=== PATIENT | male | born 1955 | race African-American/Black ===

== ENCOUNTER 2018-08-14 20:09 | Emergency (ER) | payer OTHER ==
[2018-08-14] MEDS ORDERED: Acetaminophen 500 MG TAB ONE (20:38)
--- NOTE | 2018-08-14 20:58 | CT ---
CT OF THE BRAIN WITHOUT CONTRAST: 08/14/18 The ventricles are normal in size with no shift. No intracranial bleeding or extra-axial hematoma was seen. There is no sign of mass, edema, or stroke. There is a small amount of soft tissue swelling over the left side of the forehead. The underlying sara ne appears normal in the skull. There is no air fluid level in the sphenoid sinus and the mastoid air cells are clear. Some mild mucosal thickening is seen in some of the ethmoid air cells bilaterally. IMPRESSION: No acute intracranial findings. POS: HOME
--- NOTE | 2018-08-14 20:59 | RAD ---
PORTABLE CHEST 08/14/18 An AP portable film at 2019 shows a normal sized heart and clear lungs. There is no mediastinal widen ing or shift. The lungs are fully inflated and clear. No fractures were appreciated. IMPRESSION: No acute thoracic finding. POS: HOME
--- NOTE | 2018-08-14 21:01 | RAD ---
PELVIS ONE VIEW: 08/14/18 A single view of the pelvis shows no evidence of fracture. the SI joints are symmetrical and the symp hysis shows no widening or offset. The arcuate lines of the sacrum appear intact. The hips showed no acute fracture. There is some mild joint space narrowing bilaterally. A tiny carli of bone lateral to the left acetabulum is probably longstanding. Each pubic ring appeared intact. IMPRESSION: No acute bony findings. POS: HOME
== END 2018-08-14 21:10 | disposition home or self-care (01) ==
LOC: BURERS 20:09
DX: T23.002A Burn of unspecified degree of left hand, unspecified site, initial encounter (principal); S00.83XA Contusion of other part of head, initial encounter; E11.9 Type 2 diabetes mellitus without complications; K21.9 Gastro-esophageal reflux disease without esophagitis; E78.5 Hyperlipidemia, unspecified; I10 Essential (primary) hypertension; Z79.899 Other long term (current) drug therapy; Z79.82 Long term (current) use of aspirin; Z79.84 Long term (current) use of oral hypoglycemic drugs; V40.0XXA Car driver injured in collision with pedestrian or animal in nontraffic accident, initial encounter
CPT/HCPCS: 70450; 71045; 72170; 94760; G0390